=== PATIENT | female | born 1990 | race Caucasian/White ===

== ENCOUNTER → 2025-01-01 12:55 | Outpatient (REF) | payer OTHER, SELFPAY | LOC: PNTC 12:55 | PROVIDERS: ATTENDING PHYSICIAN Obstetrics & Gynecology | DX: O36.8199 Decreased fetal movements, unspecified trimester, other fetus (principal) | CPT/HCPCS: 59025; 76815 ==

== ENCOUNTER 2025-02-04 09:13 | Observation (INO) | payer OTHER, SELFPAY ==
[2025-02-04 09:18] VITALS: BP 119/77; BMI 27.8
[2025-02-04 09:46] LABS: Hematocrit 30.4 % (37.0-47.0); Hemoglobin 10.3 g/dL (12.0-16.0); Mean Corp Hgb Conc. 33.9 g/dL (33.0-37.0); Mean Corpuscular Hgb 27.8 pg (27.0-31.0); Mean Corpuscular Volume 82.2 fL (81.0-99.0); Mean Platelet Volume 10.6 fL (7.4-10.4); Platelet Count 272 10^3/uL (130-400); Red Cell Dist. Width 12.9 % (11.5-14.5); White Blood Cell Count 6.9 10^3/uL (4.8-10.8)
[2025-02-04 10:00] LABS: ALT (SGPT) 32 U/L (0-35); AST (SGOT) 32 U/L (14-36); Albumin 3.1 g/dl (3.5-5.0); Alkaline Phosphatase 238 U/L (38-126); Blood Urea Nitrogen 9 mg/dl (7-17); Calcium 8.9 mg/dl (8.4-10.2); Carbon Dioxide 22 mmol/L (22-30); Chloride 108 mmol/L (98-107); Estimated Creatinine Clearance 117 ml/min; Glucose 119 mg/dl (70-99); Sodium 136 mmol/L (135-145); Total Bilirubin 0.5 mg/dl (0.2-1.3); Total Protein 5.9 g/dl (6.3-8.2); eGFR > 60.00
[2025-02-06 19:29] LABS: Bile Acids (Cholylglycine) 10 umol/L (0-10)
== END 2025-02-04 10:55 | disposition home or self-care (01) ==
LOC: LDRP 09:13
PROVIDERS: ADMITTING PHYSICIAN Obstetrics & Gynecology
DX: O26.643 Intrahepatic cholestasis of pregnancy, third trimester (principal); Z3A.36 36 weeks gestation of pregnancy
CPT/HCPCS: 36415; 80053; 82239; 85027; 86850; 86900; 86901; 87070; 87077; 87147; G0378

== ENCOUNTER 2025-02-06 07:33 | Inpatient (IN) | payer OTHER, SELFPAY ==
[2025-02-06 07:37] VITALS: BP 114/75; BMI 28.3
[2025-02-06] MEDS: LR 1000 IV ×2 (07:45→09:26)
[2025-02-06 09:23] LABS: % Basophils 0.4 % (0-2); % Eosinophils 4.5 % (0-6); % Immature Granulocytes 0.7 % (0-0.5); % Lymphocytes 35.9 % (20.5-51.1); % Monocytes 6.4 % (1.7-9.3); % Neutrophils 52.1 % (42.2-75.2); Absolute Eosinophils 0.3 10^3/uL (0-0.7); Absolute Immature Granulocytes 0.1 10^3/uL (0-0.05); Absolute Lymphocytes 2.7 10^3/uL (1.2-3.4); Absolute Monocytes 0.5 10^3/uL (0.1-0.6); Absolute Neutrophils 3.9 10^3/uL (1.4-6.5); Hematocrit 33.2 % (37.0-47.0); Mean Corp Hgb Conc. 33.1 g/dL (33.0-37.0); Mean Corpuscular Hgb 27.6 pg (27.0-31.0); Mean Corpuscular Volume 83.2 fL (81.0-99.0); Mean Platelet Volume 11.2 fL (7.4-10.4); Nucleated Red Blood Cells % 0 %; Platelet Count 295 10^3/uL (130-400); Red Blood Cell Count 3.99 10^6/uL (4.20-5.40); Red Cell Dist. Width 13.1 % (11.5-14.5); White Blood Cell Count 7.5 10^3/uL (4.8-10.8)
[2025-02-06] MEDS: PITOCIN 30 UNITS/NSS 500 ML IV (09:29)
[2025-02-06] MEDS: PENICILLIN 110 UNITS IV (10:20)
[2025-02-06] MEDS: CELESTONE SOLUSPAN 2 MG IM (10:21)
[2025-02-06 11:28] LABS: ALT (SGPT) 32 U/L (0-35); AST (SGOT) 33 U/L (14-36); Alkaline Phosphatase 215 U/L (38-126); Blood Urea Nitrogen 11 mg/dl (7-17); Calcium 9.1 mg/dl (8.4-10.2); Carbon Dioxide 23 mmol/L (22-30); Chloride 106 mmol/L (98-107); Estimated Creatinine Clearance 118 ml/min; Glucose 91 mg/dl (70-99); Potassium 4.3 mmol/L (3.5-5.1); Sodium 136 mmol/L (135-145); Total Bilirubin 0.5 mg/dl (0.2-1.3); Total Protein 5.8 g/dl (6.3-8.2); eGFR > 60.00
[2025-02-06] MEDS: PENICILLIN 55 UNITS IV ×3 (15:03→23:41)
[2025-02-07] MEDS: FENTANYL/BUPIVACAINE 100 EPIDURAL (00:35)
[2025-02-07] MEDS: SUBLIMAZE 100 MCG EPIDURAL (00:35)
[2025-02-07] MEDS: PRENATAL PLUS 1 TABLET PO (08:51)
[2025-02-07] MEDS: MOTRIN 600 MG PO ×2 (12:14→20:50)
[2025-02-08 04:38] LABS: Hematocrit 31.9 % (37.0-47.0); Hemoglobin 10.5 g/dL (12.0-16.0)
[2025-02-08] MEDS: MOTRIN 600 MG PO ×2 (07:35→22:06)
[2025-02-08] MEDS: SENOKOT-S 1 TABLET PO (07:35)
[2025-02-08] MEDS: PRENATAL PLUS 1 TABLET PO (07:39)
[2025-02-09] MEDS: MOTRIN 600 MG PO (05:43)
[2025-02-09] MEDS: PRENATAL PLUS 1 TABLET PO (08:09)
[2025-02-09] MEDS: SENOKOT-S 1 TABLET PO (08:09)
[2025-02-09 11:38] LABS: Syphilis/T. pallidum Ab Reflex Negative (Negative)
== END 2025-02-09 11:49 | disposition home or self-care (01) | DRG 807 ==
LOC: LDRP 07:33
PROVIDERS: ADMITTING PHYSICIAN Student in an Organized Health Care Education/Training Program
PROC: 3E033VJ Introduction of Other Hormone into Peripheral Vein, Percutaneous Approach (ICD-10-PCS; 2025-02-06)
PROC: 10907ZC Drainage of Amniotic Fluid, Therapeutic from Products of Conception, Via Natural or Artificial Opening (ICD-10-PCS; 2025-02-06)
PROC: 10E0XZZ Delivery of Products of Conception, External Approach (ICD-10-PCS; 2025-02-07)
DX: O26.643 Intrahepatic cholestasis of pregnancy, third trimester (principal); Z37.0 Single live birth; Z3A.37 37 weeks gestation of pregnancy; O70.0 First degree perineal laceration during delivery; O69.81X0 Labor and delivery complicated by cord around neck, without compression, not applicable or unspecified
CPT/HCPCS: 88307; 80053; 85014; 85018; 85025; 86780; 86850; 86900; 86901